=== PATIENT | male | born 1970 | race Caucasian/White ===

== ENCOUNTER 2023-05-10 11:52 | Inpatient (IN) | payer MEDICAID ==
[~2023-05-10] VITALS: Ht 170.2 cm; Wt 50.8 kg
[2023-05-10 12:02] VITALS: BP_SYST 102; PULSE 78; RESP 18; TEMP 98.3; O2SAT 99
[2023-05-10 12:46] LABS: BASOPHILS # (AUTO) 0.1 K/uL (0.0-0.2); BASOPHILS % (AUTO) 0.8 % (0.0-2.0); EOSINOPHILS # (AUTO) 0.1 K/uL (0.0-0.4); EOSINOPHILS % (AUTO) 0.9 % (0.0-4.0); HEMATOCRIT 22.6 % (36-54); HEMOGLOBIN 7.5 g/dL (14.0-18.0); LYMPHOCYTES # (AUTO) 1.2 K/uL (1.0-5.5); LYMPHOCYTES % (AUTO) 10.7 % (20.5-51.5); MEAN CORPUSCULAR HEMOGLOBIN 34 pg (27-31); MEAN CORPUSCULAR HGB CONC 33 % (32-36); MEAN CORPUSCULAR VOLUME 101 fL (79.0-98.0); MONOCYTES # (AUTO) 0.7 K/uL (0.0-1.0); MONOCYTES % (AUTO) 5.9 % (1.7-9.3); NEUTROPHILS % (AUTO) 81.7 % (40.0-70.0); PLATELET COUNT (AUTO) 136 K/uL (130-430); RED BLOOD CELL COUNT(AUTO) 2.23 MIL/uL (4.2-6.2); RED CELL DISTRIBUTION WIDTH 19.7 % (9.0-15.0)
[2023-05-10 13:06] LABS: INR 1.3 (0.80-1.20); PROTHROMBIN TIME 13.1 SECS (9.5-12.5)
[2023-05-10 13:14] LABS: ALANINE AMINOTRANSFERASE 22 U/L (12-78); ALBUMIN 1.7 g/dL (3.4-4.8); ANION GAP 6 (5-15); ASPARTATE AMINOTRANSFERASE 46 U/L (10-37); BILIRUBIN,DIRECT 0.5 mg/dL (0.0-0.3); CALCIUM 7.9 mg/dL (8.4-11.0); CARBON DIOXIDE 30 mmol/L (23-29); CHLORIDE 103 mmol/L (98-107); GFR AFRICAN AMERICAN 13 mL/min (>90); GLUCOSE 144 mg/dL (74-106); PHOSPHORUS 3.8 mg/dL (2.7-4.5); POTASSIUM 3.8 mmol/L (3.5-5.1); SODIUM SERUM 139 mmol/L (136-145); TOTAL BILIRUBIN 1.1 mg/dL (0.0-1.0); TOTAL PROTEIN, SERUM 5.6 g/dL (6.4-8.3); UREA NITROGEN, BLOOD 38 mg/dL (8-21)
[2023-05-10 13:15] LABS: GFR NON AFRICAN-AMERICAN 11 mL/min (>90)
[2023-05-10] MEDS: FUROSEMIDE 100 MG/10 ML VIAL IVP ONE (13:37)
[2023-05-10] MEDS: ACETAMINOPHEN 325 MG TABLET PO ONE (16:51)
[2023-05-10] MEDS ORDERED: AMLO10TA88 PO (17:00)
[2023-05-10] MEDS ORDERED: DARB100V SQ (17:00)
[2023-05-10] MEDS ORDERED: [UNRECOGNIZED DRUG - CODE] SQ (17:17)
[2023-05-10] MEDS ORDERED: DULR10 RC (17:32)
[2023-05-10] MEDS ORDERED: AMIN30LI51 PO (17:32)
[2023-05-10] MEDS ORDERED: [UNRECOGNIZED DRUG - CODE] PO (17:32)
[2023-05-10] MEDS ORDERED: LACT10SO66 PO (17:32)
[2023-05-10] MEDS ORDERED: VITA1TAB25 PO (17:32)
[2023-05-10] MEDS ORDERED: RIFA550T5 PO (17:32)
[2023-05-10] MEDS ORDERED: NA P133E41 RC (17:32)
[2023-05-10] MEDS ORDERED: CALC-740 PO (17:32)
[2023-05-10] MEDS ORDERED: PRO40 PO (17:32)
[2023-05-10] MEDS ORDERED: FERR-31 PO (17:32)
[2023-05-10] MEDS ORDERED: DIPH28CR (17:32)
[2023-05-10] MEDS ORDERED: CICL6.6S19 TP (17:32)
[2023-05-10] MEDS ORDERED: MULT-598 PO (17:32)
[2023-05-10] MEDS ORDERED: METO25TA6 PO (17:32)
[2023-05-10 18:30] VITALS: BP_SYST 96; PULSE 86; RESP 18; TEMP 97.5; O2SAT 99
[2023-05-10 20:00] VITALS: BP_SYST 98; PULSE 83; RESP 20; TEMP 83; TEMP 98.3; O2SAT 99
[2023-05-10] MEDS ORDERED: TEMAZEPAM 7.5 MG CAPSULE PO PRN (21:00)
[2023-05-10] MEDS: ALBUMIN HUMAN 25% 100 ML IV SCH (21:00)
[2023-05-10] MEDS ORDERED: ONDANSETRON HCL 4 MG/2 ML VIAL IVP PRN (21:45)
[2023-05-10] MEDS: HEPARIN SODIUM, PORCINE 10,000 UNITS/ 10 ML VIAL MC ONE (22:36)
[2023-05-11] VITALS: BP_SYST 104; PULSE 83; RESP 20; TEMP 98; O2SAT 99
[2023-05-11] MEDS: MORPHINE 2 MG/ML INJ. SYRINGE IVP PRN (02:11)
[2023-05-11 05:31] LABS: BASOPHILS % (AUTO) 0.6 % (0.0-2.0); EOSINOPHILS # (AUTO) 0.2 K/uL (0.0-0.4); EOSINOPHILS % (AUTO) 2.8 % (0.0-4.0); LYMPHOCYTES # (AUTO) 1.2 K/uL (1.0-5.5); LYMPHOCYTES % (AUTO) 13.9 % (20.5-51.5); MEAN CORPUSCULAR HEMOGLOBIN 34 pg (27-31); MEAN CORPUSCULAR HGB CONC 34 % (32-36); MEAN CORPUSCULAR VOLUME 101 fL (79.0-98.0); MONOCYTES # (AUTO) 0.9 K/uL (0.0-1.0); MONOCYTES % (AUTO) 10.7 % (1.7-9.3); PLATELET COUNT (AUTO) 76 K/uL (130-430); RED CELL DISTRIBUTION WIDTH 19.6 % (9.0-15.0); WHITE BLOOD COUNT (AUTO) 8.4 K/uL (4.8-10.8)
[2023-05-11 05:33] LABS: CREATININE 4.95 mg/dL (0.55-1.30); POTASSIUM 4.4 mmol/L (3.5-5.1)
[2023-05-11 05:39] LABS: ALBUMIN 2.1 g/dL (3.4-4.8); PHOSPHORUS 3.7 mg/dL (2.7-4.5); TOTAL PROTEIN, SERUM 5.2 g/dL (6.4-8.3)
[2023-05-11 05:56] LABS: RED BLOOD CELL COUNT(AUTO) 1.98 MIL/uL (4.2-6.2)
[2023-05-11 05:58] LABS: HEMATOCRIT 19.9 % (36-54); HEMOGLOBIN 6.7 g/dL (14.0-18.0)
[2023-05-11 07:43] VITALS: BP_SYST 107; PULSE 78; RESP 14; TEMP 98; O2SAT 99
[2023-05-11] MEDS ORDERED: CALCIUM CARBONATE 500 MG/ TAB.CHEW PO PRN (08:15)
[2023-05-11 09:00] VITALS: O2SAT 98
[2023-05-11] MEDS: MULTIVITS,CA,MINERALS/IRON/FA 1 TABLET PO SCH (09:04)
[2023-05-11] MEDS: FERROUS SULFATE 325 MG TABLET.DR PO SCH (09:04)
[2023-05-11] MEDS: PANTOPRAZOLE SODIUM 40 MG TAB PO SCH (09:04)
[2023-05-11] MEDS: RIFAXIMIN 550 MG TABLET PO SCH (09:04)
[2023-05-11] MEDS: METOPROLOL TARTRATE 25 MG TABLET PO SCH (09:05)
[2023-05-11 11:06] VITALS: BP_SYST 102; PULSE 69; RESP 15; TEMP 98.1; O2SAT 100
[2023-05-11] MEDS ORDERED: ACET325T53 PO ×2 (14:21)
[2023-05-11 15:04] VITALS: BP_SYST 98; PULSE 67; RESP 16; TEMP 97.4; O2SAT 100
[2023-05-11 19:55] VITALS: BP_SYST 105; PULSE 83; RESP 18; TEMP 97.5; O2SAT 98
[2023-05-11] MEDS: NYSTATIN 15 GM TOPICAL POWDER TP SCH (21:33)
[2023-05-12 00:53] VITALS: BP_SYST 99; PULSE 89; RESP 18; TEMP 97.8; O2SAT 97
[2023-05-12 06:07] LABS: BASOPHILS # (AUTO) 0.1 K/uL (0.0-0.2); BASOPHILS % (AUTO) 0.4 % (0.0-2.0); EOSINOPHILS # (AUTO) 0.1 K/uL (0.0-0.4); EOSINOPHILS % (AUTO) 0.7 % (0.0-4.0); HEMATOCRIT 24.5 % (36-54); HEMOGLOBIN 8.2 g/dL (14.0-18.0); LYMPHOCYTES # (AUTO) 1.5 K/uL (1.0-5.5); MEAN CORPUSCULAR HEMOGLOBIN 33 pg (27-31); MEAN CORPUSCULAR HGB CONC 34 % (32-36); MEAN CORPUSCULAR VOLUME 98 fL (79.0-98.0); MONOCYTES % (AUTO) 7.1 % (1.7-9.3); NEUTROPHILS # (AUTO) 10.9 K/uL (1.8-7.7); NEUTROPHILS % (AUTO) 80.8 % (40.0-70.0); PLATELET COUNT (AUTO) 105 K/uL (130-430); RED BLOOD CELL COUNT(AUTO) 2.51 MIL/uL (4.2-6.2); WHITE BLOOD COUNT (AUTO) 13.5 K/uL (4.8-10.8)
[2023-05-12 06:36] LABS: CALCIUM 8.1 mg/dL (8.4-11.0); CREATININE 5.79 mg/dL (0.55-1.30); POTASSIUM 4.2 mmol/L (3.5-5.1); THYROID STIMULATING HORMONE 4.83 uIu/mL (0.34-4.82); TOTAL BILIRUBIN 1.5 mg/dL (0.0-1.0); TOTAL PROTEIN, SERUM 5.1 g/dL (6.4-8.3)
[2023-05-12 07:33] LABS: INR 1.4 (0.80-1.20); PROTHROMBIN TIME 13.8 SECS (9.5-12.5)
[2023-05-12 07:56] VITALS: BP_SYST 104; PULSE 84; RESP 20; TEMP 98; O2SAT 97
[2023-05-12 10:40] VITALS: O2SAT 96
[2023-05-12 13:33] VITALS: BP_SYST 108; PULSE 62; RESP 18; TEMP 98.3; O2SAT 98
[2023-05-12 17:22] VITALS: BP_SYST 124; PULSE 87; RESP 16; TEMP 98.1; O2SAT 98
[2023-05-12] MEDS: HEPARIN SODIUM,PORCINE 5,000 UNITS/ML VIAL MC ONE (18:58)
[2023-05-12 21:38] VITALS: BP_SYST 113; PULSE 86; RESP 19; TEMP 98.6; O2SAT 98
[2023-05-12] MEDS: EPOETIN ALFA-EPBX 4,000 UNITS/ML VIAL SUBCUT SCH (22:23)
[2023-05-13 00:21] VITALS: BP_SYST 119; PULSE 88; RESP 16; TEMP 98.7; O2SAT 98
[2023-05-13] MEDS: TEMAZEPAM 15 MG CAPSULE PO PRN (01:16)
[2023-05-13 07:05] LABS: BASOPHILS # (AUTO) 0.1 K/uL (0.0-0.2); BASOPHILS % (AUTO) 0.7 % (0.0-2.0); EOSINOPHILS # (AUTO) 0.3 K/uL (0.0-0.4); EOSINOPHILS % (AUTO) 2.3 % (0.0-4.0); HEMATOCRIT 24.4 % (36-54); LYMPHOCYTES # (AUTO) 1.6 K/uL (1.0-5.5); LYMPHOCYTES % (AUTO) 14.2 % (20.5-51.5); MEAN CORPUSCULAR HEMOGLOBIN 33 pg (27-31); MEAN CORPUSCULAR HGB CONC 33 % (32-36); MEAN CORPUSCULAR VOLUME 99 fL (79.0-98.0); MONOCYTES # (AUTO) 0.9 K/uL (0.0-1.0); MONOCYTES % (AUTO) 8.5 % (1.7-9.3); NEUTROPHILS # (AUTO) 8.2 K/uL (1.8-7.7); NEUTROPHILS % (AUTO) 74.3 % (40.0-70.0); PLATELET COUNT (AUTO) 86 K/uL (130-430); RED BLOOD CELL COUNT(AUTO) 2.48 MIL/uL (4.2-6.2); RED CELL DISTRIBUTION WIDTH 22.2 % (9.0-15.0); WHITE BLOOD COUNT (AUTO) 11.1 K/uL (4.8-10.8)
[2023-05-13 08:00] VITALS: BP_SYST 110; PULSE 80; RESP 16; TEMP 97.7; O2SAT 96
[2023-05-13 10:23] LABS: ANISOCYTOSIS 2+; OVALOCYTES FEW
[2023-05-13 12:01] VITALS: BP_SYST 124; PULSE 68; RESP 19; TEMP 98.4; O2SAT 98
[2023-05-13 16:28] VITALS: BP_SYST 114; PULSE 71; RESP 17; TEMP 98.7; O2SAT 97
[2023-05-13 21:18] VITALS: BP_SYST 95; PULSE 75; RESP 18; TEMP 97.5; O2SAT 95
[2023-05-13] MEDS: metroNIDAZOLE 500 mg/NS 100 ML IV SCH (22:10)
[2023-05-14 00:30] VITALS: BP_SYST 112; PULSE 78; RESP 18; TEMP 96.9; O2SAT 98
[2023-05-14 07:02] LABS: BASOPHILS # (AUTO) 0.1 K/uL (0.0-0.2); BASOPHILS % (AUTO) 0.6 % (0.0-2.0); EOSINOPHILS # (AUTO) 0.2 K/uL (0.0-0.4); EOSINOPHILS % (AUTO) 3.1 % (0.0-4.0); HEMATOCRIT 24.4 % (36-54); HEMOGLOBIN 8.2 g/dL (14.0-18.0); LYMPHOCYTES # (AUTO) 1.3 K/uL (1.0-5.5); LYMPHOCYTES % (AUTO) 16.1 % (20.5-51.5); MEAN CORPUSCULAR HEMOGLOBIN 33 pg (27-31); MEAN CORPUSCULAR HGB CONC 34 % (32-36); MEAN CORPUSCULAR VOLUME 97 fL (79.0-98.0); MONOCYTES # (AUTO) 0.8 K/uL (0.0-1.0); MONOCYTES % (AUTO) 10.2 % (1.7-9.3); NEUTROPHILS # (AUTO) 5.6 K/uL (1.8-7.7); PLATELET COUNT (AUTO) 98 K/uL (130-430); RED BLOOD CELL COUNT(AUTO) 2.51 MIL/uL (4.2-6.2); RED CELL DISTRIBUTION WIDTH 21.8 % (9.0-15.0)
[2023-05-14 07:09] LABS: CALCIUM 7.9 mg/dL (8.4-11.0); CREATININE 5.65 mg/dL (0.55-1.30); POTASSIUM 4.1 mmol/L (3.5-5.1)
[2023-05-14 08:16] VITALS: O2SAT 96
[2023-05-14 08:24] VITALS: BP_SYST 106; PULSE 80; RESP 16; TEMP 97.4; O2SAT 97
[2023-05-14 12:00] VITALS: BP_SYST 84; PULSE 78; RESP 16; TEMP 97.9
[2023-05-14] MEDS ORDERED: HEPARIN IV FLUSH 300 UNITS/3ML SYR INJ ONE (12:30)
[2023-05-14] MEDS: ALBUMIN HUMAN 25% 200 ML IV ONE (12:35)
[2023-05-14] MEDS: HEPARIN SODIUM,PORCINE 5,000 UNITS/ML VIAL MC ONE (13:20)
[2023-05-14 16:00] VITALS: BP_SYST 114; PULSE 76; RESP 14; TEMP 98.5; O2SAT 98
[2023-05-14 21:55] VITALS: BP_SYST 104; PULSE 86; RESP 16; TEMP 99; O2SAT 99
[2023-05-15] VITALS (7 sets, daily range): BP systolic 94–132; PULSE 69–89; RESP 16–20; TEMP 96.7–98.8; O2SAT 69–100
[2023-05-15] MEDS: ACETAMINOPHEN 325 MG TABLET PO PRN (03:01)
[2023-05-15] MEDS: CHOLESTYRAMINE/SUCROSE 4 GM/PACKET PO SCH (21:00)
[2023-05-16] VITALS: BP_SYST 106; PULSE 98; RESP 20; TEMP 98; O2SAT 99
[2023-05-16 07:18] LABS: BASOPHILS % (AUTO) 0.6 % (0.0-2.0); EOSINOPHILS # (AUTO) 0.3 K/uL (0.0-0.4); EOSINOPHILS % (AUTO) 3.8 % (0.0-4.0); HEMATOCRIT 24.6 % (36-54); HEMOGLOBIN 8.3 g/dL (14.0-18.0); LYMPHOCYTES # (AUTO) 1.1 K/uL (1.0-5.5); LYMPHOCYTES % (AUTO) 14.6 % (20.5-51.5); MEAN CORPUSCULAR HEMOGLOBIN 33 pg (27-31); MEAN CORPUSCULAR HGB CONC 34 % (32-36); MEAN CORPUSCULAR VOLUME 97 fL (79.0-98.0); MONOCYTES # (AUTO) 0.7 K/uL (0.0-1.0); NEUTROPHILS # (AUTO) 5.3 K/uL (1.8-7.7); PLATELET COUNT (AUTO) 102 K/uL (130-430); RED BLOOD CELL COUNT(AUTO) 2.52 MIL/uL (4.2-6.2); RED CELL DISTRIBUTION WIDTH 21.2 % (9.0-15.0); WHITE BLOOD COUNT (AUTO) 7.3 K/uL (4.8-10.8)
[2023-05-16 07:51] LABS: ALBUMIN 2.2 g/dL (3.4-4.8); CREATININE 5.91 mg/dL (0.55-1.30); POTASSIUM 4.9 mmol/L (3.5-5.1); TOTAL BILIRUBIN 1.3 mg/dL (0.0-1.0); TOTAL PROTEIN, SERUM 5.3 g/dL (6.4-8.3)
[2023-05-16 08:00] VITALS: BP_SYST 108; PULSE 74; RESP 16; TEMP 97.2; O2SAT 99
[2023-05-16] MEDS: VANCOMYCIN HCL ORAL SOLUTION 125 MG/5 ML, 150 ML PO SCH (10:59)
[2023-05-16 12:00] VITALS: BP_SYST 109; PULSE 75; RESP 16; TEMP 97.2; O2SAT 99
[2023-05-16 16:00] VITALS: BP_SYST 110; PULSE 77; RESP 16; TEMP 97.1; O2SAT 99
[2023-05-16 20:30] VITALS: BP_SYST 98; PULSE 80; RESP 18; TEMP 97.2; O2SAT 98
[2023-05-17] VITALS: BP_SYST 103; PULSE 77; RESP 18; O2SAT 100
[2023-05-17 06:45] LABS: BASOPHILS # (AUTO) 0.1 K/uL (0.0-0.2); BASOPHILS % (AUTO) 0.6 % (0.0-2.0); EOSINOPHILS # (AUTO) 0.3 K/uL (0.0-0.4); EOSINOPHILS % (AUTO) 3.1 % (0.0-4.0); HEMATOCRIT 25.7 % (36-54); HEMOGLOBIN 8.7 g/dL (14.0-18.0); LYMPHOCYTES # (AUTO) 1.2 K/uL (1.0-5.5); LYMPHOCYTES % (AUTO) 14.2 % (20.5-51.5); MEAN CORPUSCULAR HEMOGLOBIN 33 pg (27-31); MEAN CORPUSCULAR HGB CONC 34 % (32-36); MEAN CORPUSCULAR VOLUME 99 fL (79.0-98.0); MONOCYTES # (AUTO) 0.7 K/uL (0.0-1.0); MONOCYTES % (AUTO) 7.7 % (1.7-9.3); NEUTROPHILS # (AUTO) 6.5 K/uL (1.8-7.7); NEUTROPHILS % (AUTO) 74.4 % (40.0-70.0); PLATELET COUNT (AUTO) 108 K/uL (130-430); RED BLOOD CELL COUNT(AUTO) 2.61 MIL/uL (4.2-6.2); WHITE BLOOD COUNT (AUTO) 8.7 K/uL (4.8-10.8)
[2023-05-17 07:07] LABS: CALCIUM 7.8 mg/dL (8.4-11.0); CREATININE 6.39 mg/dL (0.55-1.30); POTASSIUM 5.1 mmol/L (3.5-5.1)
[2023-05-17 08:00] VITALS: O2SAT 97
[2023-05-17 11:23] VITALS: BP_SYST 105; PULSE 73; RESP 17; TEMP 98; O2SAT 94
[2023-05-17] MEDS: DIPHENHYDRAMINE HCL 50 MG CAPSULE PO PRN (14:25)
[2023-05-17 16:24] VITALS: BP_SYST 122; PULSE 76; RESP 17; TEMP 98.3; O2SAT 94
[2023-05-17 19:00] VITALS: O2SAT 99
[2023-05-17 20:00] VITALS: BP_SYST 110; PULSE 76; RESP 18; TEMP 98.2; O2SAT 96
[2023-05-18] VITALS (7 sets, daily range): BP systolic 104–130; PULSE 74–89; RESP 16–20; TEMP 97–98.4; O2SAT 98–100
[2023-05-19] VITALS (7 sets, daily range): BP systolic 110–130; PULSE 71–80; RESP 16–19; TEMP 97.6–98.2; O2SAT 97–99
[2023-05-19 06:25] LABS: BASOPHILS # (AUTO) 0.1 K/uL (0.0-0.2); BASOPHILS % (AUTO) 1.5 % (0.0-2.0); EOSINOPHILS # (AUTO) 0.2 K/uL (0.0-0.4); EOSINOPHILS % (AUTO) 3.2 % (0.0-4.0); HEMATOCRIT 23.7 % (36-54); LYMPHOCYTES # (AUTO) 1.9 K/uL (1.0-5.5); LYMPHOCYTES % (AUTO) 24.3 % (20.5-51.5); MEAN CORPUSCULAR HEMOGLOBIN 33 pg (27-31); MEAN CORPUSCULAR HGB CONC 34 % (32-36); MEAN CORPUSCULAR VOLUME 98 fL (79.0-98.0); MONOCYTES # (AUTO) 0.9 K/uL (0.0-1.0); MONOCYTES % (AUTO) 12.1 % (1.7-9.3); NEUTROPHILS # (AUTO) 4.5 K/uL (1.8-7.7); NEUTROPHILS % (AUTO) 58.9 % (40.0-70.0); PLATELET COUNT (AUTO) 101 K/uL (130-430); RED BLOOD CELL COUNT(AUTO) 2.42 MIL/uL (4.2-6.2); RED CELL DISTRIBUTION WIDTH 21.6 % (9.0-15.0); WHITE BLOOD COUNT (AUTO) 7.7 K/uL (4.8-10.8)
[2023-05-19 06:59] LABS: CREATININE 6.48 mg/dL (0.55-1.30); POTASSIUM 4.2 mmol/L (3.5-5.1)
[2023-05-19] MEDS: HEPARIN SODIUM,PORCINE 5,000 UNITS/ML VIAL MC ONE (12:44)
[2023-05-20] VITALS (7 sets, daily range): BP systolic 120–126; PULSE 74–82; RESP 16–19; TEMP 88–98; O2SAT 97–99
[2023-05-20] MEDS ORDERED: VANC250C11 PO (17:05)
== END 2023-05-20 18:39 | DRG 248 ==
LOC: SED 11:52 → STU 17:07 → SMU 05-15 10:26
PROVIDERS: ADMIT Internal Medicine; ATTEND Internal Medicine
PROC: 5A1D70Z Performance of Urinary Filtration, Intermittent, Less than 6 Hours Per Day (ICD-10-PCS; 2023-05-10)
PROC: 30233N1 Transfusion of Nonautologous Red Blood Cells into Peripheral Vein, Percutaneous Approach (ICD-10-PCS; principal; 2023-05-11)
PROC: 5A1D70Z Performance of Urinary Filtration, Intermittent, Less than 6 Hours Per Day (ICD-10-PCS; 2023-05-12)
PROC: 5A1D70Z Performance of Urinary Filtration, Intermittent, Less than 6 Hours Per Day (ICD-10-PCS; 2023-05-14)
PROC: 5A1D70Z Performance of Urinary Filtration, Intermittent, Less than 6 Hours Per Day (ICD-10-PCS; 2023-05-17)
PROC: 5A1D70Z Performance of Urinary Filtration, Intermittent, Less than 6 Hours Per Day (ICD-10-PCS; 2023-05-18)
PROC: 5A1D70Z Performance of Urinary Filtration, Intermittent, Less than 6 Hours Per Day (ICD-10-PCS; 2023-05-19)
DX: A04.72 Enterocolitis due to Clostridium difficile, not specified as recurrent (principal); I50.33 Acute on chronic diastolic (congestive) heart failure; E43 Unspecified severe protein-calorie malnutrition; D69.6 Thrombocytopenia, unspecified; K70.31 Alcoholic cirrhosis of liver with ascites; I42.9 Cardiomyopathy, unspecified; K76.82 Hepatic encephalopathy; D63.1 Anemia in chronic kidney disease; N17.9 Acute kidney failure, unspecified; N18.6 End stage renal disease; I13.2 Hypertensive heart and chronic kidney disease with heart failure and with stage 5 chronic kidney disease, or end stage renal disease; E87.70 Fluid overload, unspecified; E11.22 Type 2 diabetes mellitus with diabetic chronic kidney disease; N50.89 Other specified disorders of the male genital organs; E66.01 Morbid (severe) obesity due to excess calories; Z20.822 Contact with and (suspected) exposure to COVID-19; Z99.2 Dependence on renal dialysis; Z79.899 Other long term (current) drug therapy; Z79.1 Long term (current) use of non-steroidal anti-inflammatories (NSAID); Z68.1 Body mass index [BMI] 19.9 or less, adult; F10.20 Alcohol dependence, uncomplicated
CPT/HCPCS: 36415; 71045; 76700; 76870; 80048; 80053; 80061; 80076; 82140; 82948; 83037; 83605; 83735; 83880; 84100; 84443; 84484; 85025; 85610; 85730; 86886; 86900; 86901; 86920; 87040; 87081; 87230; 89055; 90935; 90937; 93005; 93306; 96374; 97110-GP; 97530-GP; 99285; G0378; J1644; J1940; J2270; J3490; P9021; Q0163; Q5106

== ENCOUNTER 2023-06-26 14:13 | Inpatient (IN) | payer MEDICAID ==
[~2023-06-26] VITALS: Ht 170.2 cm; Wt 82.6 kg
[~2023-06-26 14:13] MED LIST: ACET325T53 PO; AMIN30LI51 PO; AMLO10TA88 PO; CALC-740 PO; CICL6.6S19 TP; DARB100V SQ; DIPH28CR; DULR10 RC; FERR-31 PO; LACT10SO66 PO; METO25TA6 PO; MULT-598 PO; NA P133E41 RC; PRO40 PO; RIFA550T5 PO; VANC250C11 PO; VITA1TAB25 PO; [UNRECOGNIZED DRUG - CODE] PO
[2023-06-26 14:23] VITALS: BP_SYST 154; PULSE 66; RESP 18; TEMP 98.3; O2SAT 98
[2023-06-26] MEDS ORDERED: VITA250012 PO (14:36)
[2023-06-26 15:13] LABS: BASOPHILS # (AUTO) 0.1 K/uL (0.0-0.2); BASOPHILS % (AUTO) 1.2 % (0.0-2.0); EOSINOPHILS # (AUTO) 0.1 K/uL (0.0-0.4); EOSINOPHILS % (AUTO) 2.6 % (0.0-4.0); HEMATOCRIT 22.6 % (36-54); HEMOGLOBIN 7.7 g/dL (14.0-18.0); LYMPHOCYTES # (AUTO) 1.4 K/uL (1.0-5.5); LYMPHOCYTES % (AUTO) 27.2 % (20.5-51.5); MEAN CORPUSCULAR HEMOGLOBIN 34 pg (27-31); MEAN CORPUSCULAR HGB CONC 34 % (32-36); MEAN CORPUSCULAR VOLUME 100 fL (79.0-98.0); MONOCYTES # (AUTO) 0.4 K/uL (0.0-1.0); MONOCYTES % (AUTO) 8.3 % (1.7-9.3); NEUTROPHILS # (AUTO) 3.2 K/uL (1.8-7.7); NEUTROPHILS % (AUTO) 60.7 % (40.0-70.0); PLATELET COUNT (AUTO) 117 K/uL (130-430); RED BLOOD CELL COUNT(AUTO) 2.26 MIL/uL (4.2-6.2); RED CELL DISTRIBUTION WIDTH 21.8 % (9.0-15.0); WHITE BLOOD COUNT (AUTO) 5.2 K/uL (4.8-10.8)
[2023-06-26 15:40] LABS: INR 1.4 (0.80-1.20); PROTHROMBIN TIME 14.3 SECS (9.5-12.5)
[2023-06-26 15:49] LABS: ALANINE AMINOTRANSFERASE 9 U/L (12-78); ALBUMIN 1.8 g/dL (3.4-4.8); ANION GAP 6 (5-15); ASPARTATE AMINOTRANSFERASE 33 U/L (10-37); BILIRUBIN,DIRECT 0.7 mg/dL (0.0-0.3); CARBON DIOXIDE 31 mmol/L (23-29); CHLORIDE 105 mmol/L (98-107); CREATINE KINASE, TOTAL 49 U/L (39-308); CREATININE 4.57 mg/dL (0.55-1.30); GFR AFRICAN AMERICAN 17 mL/min (>90); GLUCOSE 162 mg/dL (74-106); POTASSIUM 3.6 mmol/L (3.5-5.1); SODIUM SERUM 142 mmol/L (136-145); TOTAL BILIRUBIN 1.9 mg/dL (0.0-1.0); UREA NITROGEN, BLOOD 28 mg/dL (8-21)
[2023-06-26 15:51] LABS: GFR NON AFRICAN-AMERICAN 14 mL/min (>90)
[2023-06-26] MEDS: LACTULOSE 20 GM/30 ML UDC PO ONE (15:54)
[2023-06-26 16:45] LABS: ACETONE, SERUM NEGATIVE (NEGATIVE)
[2023-06-26] MEDS: MAG HYDROX/AL HYDROX/SIMETH 30 ML, DICYCLOMINE HCL 20 MG, LIDOCAINE VISCOUS 2% 15ML (PO... PO ONE (18:24)
[2023-06-26] MEDS: NORMAL SALINE 5 ML DISP.SYRIN IVF SCH (21:56)
[2023-06-26 22:22] LABS: INR 1.4 (0.80-1.20); PROTHROMBIN TIME 13.9 SECS (9.5-12.5)
[2023-06-27 04:43] LABS: BASOPHILS % (AUTO) 1.1 % (0.0-2.0); EOSINOPHILS # (AUTO) 0.3 K/uL (0.0-0.4); EOSINOPHILS % (AUTO) 5.8 % (0.0-4.0); LYMPHOCYTES # (AUTO) 1.1 K/uL (1.0-5.5); LYMPHOCYTES % (AUTO) 23.9 % (20.5-51.5); MEAN CORPUSCULAR HEMOGLOBIN 33 pg (27-31); MEAN CORPUSCULAR HGB CONC 33 % (32-36); MEAN CORPUSCULAR VOLUME 100 fL (79.0-98.0); MONOCYTES # (AUTO) 0.4 K/uL (0.0-1.0); MONOCYTES % (AUTO) 9.3 % (1.7-9.3); NEUTROPHILS # (AUTO) 2.7 K/uL (1.8-7.7); NEUTROPHILS % (AUTO) 59.9 % (40.0-70.0); PLATELET COUNT (AUTO) 116 K/uL (130-430); RED BLOOD CELL COUNT(AUTO) 2.06 MIL/uL (4.2-6.2); RED CELL DISTRIBUTION WIDTH 22.2 % (9.0-15.0); WHITE BLOOD COUNT (AUTO) 4.5 K/uL (4.8-10.8)
[2023-06-27 04:46] LABS: ALBUMIN 1.7 g/dL (3.4-4.8); CREATININE 5.07 mg/dL (0.55-1.30); POTASSIUM 3.5 mmol/L (3.5-5.1); TOTAL BILIRUBIN 1.5 mg/dL (0.0-1.0); TOTAL PROTEIN, SERUM 5.5 g/dL (6.4-8.3)
[2023-06-27 04:59] LABS: INR 1.4 (0.80-1.20); PROTHROMBIN TIME 14.7 SECS (9.5-12.5)
[2023-06-27 05:06] LABS: HEMATOCRIT 20.6 % (36-54); HEMOGLOBIN 6.9 g/dL (14.0-18.0)
[2023-06-27] MEDS: PANTOPRAZOLE SODIUM 40 MG TAB PO SCH (08:18)
[2023-06-27] MEDS: LACTULOSE 20 GM/30 ML UDC PO SCH (08:18)
[2023-06-27] MEDS: RIFAXIMIN 550 MG TABLET PO SCH (08:18)
[2023-06-27] MEDS: HEPARIN SODIUM, PORCINE 10,000 UNITS/ 10 ML VIAL MC ONE (14:30)
[2023-06-27] MEDS ORDERED: HEPARIN SODIUM,PORCINE 5,000 UNITS/ML VIAL ONE (14:55)
[2023-06-27] MEDS ORDERED: LACTULOSE 20 GM/30 ML UDC ONE (16:34)
[2023-06-27 18:56] VITALS: BP_SYST 159; PULSE 72; RESP 18; TEMP 96.9; O2SAT 100
[2023-06-27 20:00] VITALS: O2SAT 98
[2023-06-28] VITALS (8 sets, daily range): BP systolic 122–156; PULSE 69–87; RESP 16–18; TEMP 97.1–98.2; O2SAT 96–100
[2023-06-28 04:34] LABS: BASOPHILS % (AUTO) 0.7 % (0.0-2.0); EOSINOPHILS # (AUTO) 0.2 K/uL (0.0-0.4); EOSINOPHILS % (AUTO) 3.6 % (0.0-4.0); HEMOGLOBIN 7.4 g/dL (14.0-18.0); LYMPHOCYTES % (AUTO) 19.8 % (20.5-51.5); MEAN CORPUSCULAR HEMOGLOBIN 33 pg (27-31); MEAN CORPUSCULAR HGB CONC 34 % (32-36); MEAN CORPUSCULAR VOLUME 97 fL (79.0-98.0); MONOCYTES # (AUTO) 0.6 K/uL (0.0-1.0); MONOCYTES % (AUTO) 11.4 % (1.7-9.3); NEUTROPHILS # (AUTO) 3.2 K/uL (1.8-7.7); NEUTROPHILS % (AUTO) 64.5 % (40.0-70.0); PLATELET COUNT (AUTO) 84 K/uL (130-430); RED BLOOD CELL COUNT(AUTO) 2.26 MIL/uL (4.2-6.2); RED CELL DISTRIBUTION WIDTH 22.2 % (9.0-15.0); WHITE BLOOD COUNT (AUTO) 4.9 K/uL (4.8-10.8)
[2023-06-28 04:38] LABS: TOTAL IRON BIND. CAPACITY 141 ug/dL (250-450)
[2023-06-28 05:03] LABS: ALBUMIN 1.7 g/dL (3.4-4.8); CALCIUM 8.2 mg/dL (8.4-11.0); CREATININE 4.48 mg/dL (0.55-1.30); TOTAL BILIRUBIN 1.8 mg/dL (0.0-1.0); TOTAL PROTEIN, SERUM 5.3 g/dL (6.4-8.3)
[2023-06-28 05:05] LABS: PHOSPHORUS 3.5 mg/dL (2.7-4.5)
[2023-06-28] MEDS: SEVELAMER CARBONATE 800 MG TABLET PO ONE (16:38)
[2023-06-28] MEDS: SEVELAMER CARBONATE 800 MG TABLET PO SCH (17:30)
[2023-06-28] MEDS: EPOETIN ALFA-EPBX 10,000 UNITS/ML VIAL SUBCUT SCH (17:31)
[2023-06-28] MEDS: traMADol HCL HCL 50 MG TABLET (ULTRAM) PO PRN (17:58)
[2023-06-28 19:36] LABS: BF APPEARANCE UNSPUN CLEAR (CLEAR); BODY FLUID COLOR YELLOW (LT YELLOW); BODY FLUID TOTAL VOLUME 2200 mL; LYMPHOCYTES, BODY FLUID 94 %; MONOCYTES,BODY FLUID 2 %; NEUTROPHIL, BODY FLUID 4 %; RBC, BODY FLUID 152 /uL; SOURCE/TYPE ,BODY FLUID PARACENTESIS; WBC, BODY FLUID 13 /uL
[2023-06-28 20:40] LABS: BODY FLUID GLUCOSE 165 mg/dL; BODY FLUID TOTAL PROTEIN 1.9 g/dL
[2023-06-29 05:47] LABS: BASOPHILS % (AUTO) 0.7 % (0.0-2.0); EOSINOPHILS # (AUTO) 0.3 K/uL (0.0-0.4); EOSINOPHILS % (AUTO) 4.4 % (0.0-4.0); HEMATOCRIT 25.8 % (36-54); HEMOGLOBIN 8.8 g/dL (14.0-18.0); LYMPHOCYTES # (AUTO) 1.2 K/uL (1.0-5.5); LYMPHOCYTES % (AUTO) 19.4 % (20.5-51.5); MEAN CORPUSCULAR HEMOGLOBIN 33 pg (27-31); MEAN CORPUSCULAR HGB CONC 34 % (32-36); MEAN CORPUSCULAR VOLUME 97 fL (79.0-98.0); MONOCYTES # (AUTO) 0.7 K/uL (0.0-1.0); MONOCYTES % (AUTO) 10.9 % (1.7-9.3); NEUTROPHILS % (AUTO) 64.6 % (40.0-70.0); PLATELET COUNT (AUTO) 79 K/uL (130-430); RED BLOOD CELL COUNT(AUTO) 2.65 MIL/uL (4.2-6.2); RED CELL DISTRIBUTION WIDTH 22.1 % (9.0-15.0); WHITE BLOOD COUNT (AUTO) 6.3 K/uL (4.8-10.8)
[2023-06-29 06:01] LABS: CALCIUM 7.7 mg/dL (8.4-11.0); CREATININE 3.91 mg/dL (0.55-1.30); PHOSPHORUS 3.5 mg/dL (2.7-4.5); POTASSIUM 4.2 mmol/L (3.5-5.1)
[2023-06-29 08:02] VITALS: BP_SYST 136; PULSE 76; RESP 18; TEMP 97.4; O2SAT 98
[2023-06-29 10:06] LABS: ALPHA-1-ANTITRYPSIN, S 145 mg/dL (101-187)
[2023-06-29 11:00] VITALS: BP_SYST 140; PULSE 89; RESP 16; TEMP 97.8; O2SAT 94
[2023-06-29 12:06] LABS: ANTI NUCLEAR AB WITH REFLEX Positive (Negative)
[2023-06-29] MEDS: D5/0.45 NS 1,000 ML IV SCH (14:07)
[2023-06-29 15:52] VITALS: BP_SYST 140; PULSE 86; RESP 16; TEMP 97.9; O2SAT 95
[2023-06-29] MEDS: SOD FERRIC GLUC COMPLEX/SUC 125 MG in NS 100 ML IV SCH (18:12)
[2023-06-29 20:00] VITALS: BP_SYST 154; PULSE 77; RESP 18; TEMP 99; O2SAT 97
[2023-06-30] VITALS (7 sets, daily range): BP systolic 117–159; PULSE 74–85; RESP 16–18; TEMP 97.2–98; O2SAT 94–98
[2023-06-30 01:06] LABS: AFP, TUMOR MARKER 2.1 ng/mL (0.0-8.4)
[2023-06-30 03:07] LABS: HEPATITIS A AB, IgM Negative (Negative); HEPATITIS B CORE AB, IgM Negative (Negative); HEPATITIS B SURFACE AG Negative (Negative); HEPATITIS C VIRUS AB Non Reactive (Non Reactive)
[2023-06-30 04:59] LABS: BASOPHILS % (AUTO) 0.9 % (0.0-2.0); EOSINOPHILS # (AUTO) 0.3 K/uL (0.0-0.4); HEMATOCRIT 24.6 % (36-54); HEMOGLOBIN 8.3 g/dL (14.0-18.0); LYMPHOCYTES # (AUTO) 1.2 K/uL (1.0-5.5); LYMPHOCYTES % (AUTO) 23.4 % (20.5-51.5); MEAN CORPUSCULAR HEMOGLOBIN 33 pg (27-31); MEAN CORPUSCULAR HGB CONC 34 % (32-36); MEAN CORPUSCULAR VOLUME 98 fL (79.0-98.0); MONOCYTES # (AUTO) 0.6 K/uL (0.0-1.0); MONOCYTES % (AUTO) 11.4 % (1.7-9.3); NEUTROPHILS # (AUTO) 3.1 K/uL (1.8-7.7); NEUTROPHILS % (AUTO) 59.3 % (40.0-70.0); PLATELET COUNT (AUTO) 82 K/uL (130-430); RED BLOOD CELL COUNT(AUTO) 2.52 MIL/uL (4.2-6.2); RED CELL DISTRIBUTION WIDTH 22.4 % (9.0-15.0); WHITE BLOOD COUNT (AUTO) 5.2 K/uL (4.8-10.8)
[2023-06-30 05:33] LABS: CALCIUM 8.2 mg/dL (8.4-11.0); CREATININE 4.86 mg/dL (0.55-1.30); POTASSIUM 3.5 mmol/L (3.5-5.1)
[2023-06-30] MEDS: FOLIC ACID 1 MG TABLET PO SCH (08:22)
[2023-06-30 15:06] LABS: ANTI-SMOOTH MUSCLE AB 28 Units (0-19)
[2023-07-01 04:40] LABS: EOSINOPHILS # (AUTO) 0.3 K/uL (0.0-0.4); EOSINOPHILS % (AUTO) 6.7 % (0.0-4.0); HEMATOCRIT 24.6 % (36-54); HEMOGLOBIN 8.5 g/dL (14.0-18.0); LYMPHOCYTES # (AUTO) 1.2 K/uL (1.0-5.5); LYMPHOCYTES % (AUTO) 23.3 % (20.5-51.5); MEAN CORPUSCULAR HEMOGLOBIN 33 pg (27-31); MEAN CORPUSCULAR HGB CONC 34 % (32-36); MEAN CORPUSCULAR VOLUME 97 fL (79.0-98.0); MONOCYTES # (AUTO) 0.5 K/uL (0.0-1.0); MONOCYTES % (AUTO) 10.7 % (1.7-9.3); NEUTROPHILS # (AUTO) 2.9 K/uL (1.8-7.7); NEUTROPHILS % (AUTO) 58.3 % (40.0-70.0); PLATELET COUNT (AUTO) 83 K/uL (130-430); RED BLOOD CELL COUNT(AUTO) 2.54 MIL/uL (4.2-6.2); RED CELL DISTRIBUTION WIDTH 21.6 % (9.0-15.0)
[2023-07-01 05:05] LABS: CREATININE 4.39 mg/dL (0.55-1.30); POTASSIUM 3.9 mmol/L (3.5-5.1)
[2023-07-01 08:00] VITALS: BP_SYST 146; PULSE 76; RESP 20; TEMP 97.8; O2SAT 96
[2023-07-01] MEDS: LACTULOSE 20 GM/30 ML UDC PO SCH (09:25)
[2023-07-01 11:08] VITALS: BP_SYST 144; PULSE 85; RESP 17; TEMP 97.8; O2SAT 96
[2023-07-01 16:12] VITALS: BP_SYST 140; PULSE 80; RESP 17; TEMP 97.9; O2SAT 96
== END 2023-07-01 18:25 | DRG 280 ==
LOC: SED 14:13 → STU 16:30 → SMU 07-01 17:55
PROVIDERS: ADMIT Internal Medicine; ATTEND Internal Medicine
PROC: 30233N1 Transfusion of Nonautologous Red Blood Cells into Peripheral Vein, Percutaneous Approach (ICD-10-PCS; principal; 2023-06-27)
PROC: 5A1D70Z Performance of Urinary Filtration, Intermittent, Less than 6 Hours Per Day (ICD-10-PCS; 2023-06-27)
PROC: 05HY33Z Insertion of Infusion Device into Upper Vein, Percutaneous Approach (ICD-10-PCS; 2023-06-27)
PROC: B54NZZA Ultrasonography of Left Upper Extremity Veins, Guidance (ICD-10-PCS; 2023-06-27)
PROC: 0W9G3ZZ Drainage of Peritoneal Cavity, Percutaneous Approach (ICD-10-PCS; 2023-06-28)
PROC: 5A1D70Z Performance of Urinary Filtration, Intermittent, Less than 6 Hours Per Day (ICD-10-PCS; 2023-06-28)
PROC: 5A1D70Z Performance of Urinary Filtration, Intermittent, Less than 6 Hours Per Day (ICD-10-PCS; 2023-06-30)
DX: K70.31 Alcoholic cirrhosis of liver with ascites (principal); I81 Portal vein thrombosis; G92.8 Other toxic encephalopathy; I13.2 Hypertensive heart and chronic kidney disease with heart failure and with stage 5 chronic kidney disease, or end stage renal disease; E43 Unspecified severe protein-calorie malnutrition; D69.6 Thrombocytopenia, unspecified; N18.6 End stage renal disease; D63.8 Anemia in other chronic diseases classified elsewhere; K76.82 Hepatic encephalopathy; I50.32 Chronic diastolic (congestive) heart failure; E66.9 Obesity, unspecified; Z99.2 Dependence on renal dialysis; Z79.899 Other long term (current) drug therapy; Z68.28 Body mass index [BMI] 28.0-28.9, adult; E11.22 Type 2 diabetes mellitus with diabetic chronic kidney disease
CPT/HCPCS: 36415; 49083; 70450-TC; 71045; 76700; 80048; 80053; 80074; 80076; 82009; 82042; 82103; 82105; 82140; 82550; 82947; 82948; 83516; 83540; 83550; 83605; 83735; 84100; 84157; 84484; 85025; 85610; 85730; 86038; 86886; 86900; 86901; 86920; 87040; 87081; 88108; 88305; 89051; 89060; 90935; 90937; 93005; 97110-GP; 97112-GP; 97116-GP; 97530-GP; 99285; G0378; J1644; J2001; J2916; P9021; Q5106